=== PATIENT | male | born 1945 | race Caucasian/White ===

== ENCOUNTER → 2016-06-24 | Outpatient (CLI) | payer MEDICARE ==
[~2016-06-24] MED LIST: ACAR50TA11 PO; ASPI-621 PO; BALS750C14 PO; CANA100T PO; CARV12.52 PO; DIGO125T PO; METF500T4 PO; PANT20TA3 PO; SIMV20TA3 PO; VALS160T3 PO
[2016-06-24 15:30] LABS: HEMOGLOBIN 16.5 g/dL (13.7-18.0)
[2016-06-24 15:38] LABS: ASPARTATE AMINO TRANSFERASE 14 U/L (15-37); BLOOD UREA NITROGEN 16 mg/dL (7-18)
== END | disposition home or self-care (01) ==
LOC: STAR 14:28
PROVIDERS: ATTEND Internal Medicine Cardiovascular Disease
DX: Z01.810 Encounter for preprocedural cardiovascular examination (principal); I48.0 Paroxysmal atrial fibrillation
CPT/HCPCS: 36415; 80053; 85025; 85610; 85730; 93005

== ENCOUNTER → 2016-06-24 | Outpatient (CLI) | payer MEDICARE ==
[~2016-06-24] MED LIST changes: +OMNIPAQUE 350 MG/ML, 150 ML BOTTLE ONE
== END | disposition home or self-care (01) ==
LOC: CFH 12:39
PROVIDERS: ATTEND Internal Medicine Cardiovascular Disease
DX: I48.91 Unspecified atrial fibrillation (principal)
CPT/HCPCS: 71020; 75572; 82565; Q9967

== ENCOUNTER 2016-06-29 06:35 | Observation (INO) | payer MEDICARE ==
[2016-06-24 14:58] VITALS: BP 147/73
[~2016-06-29] VITALS: Ht 180.3 cm; Wt 104.0 kg
[~2016-06-29 06:35] MED LIST changes: -OMNIPAQUE 350 MG/ML, 150 ML BOTTLE ONE
[2016-06-29] MEDS ORDERED: SODIUM CHLORIDE 0.9% 1,000 ML IV SCH ×2 (06:38→07:00)
[2016-06-29] MEDS ORDERED: MIDAZOLAM 1 MG/ML, 5ML ONE (07:36)
[2016-06-29] MEDS ORDERED: FENTANYL PF 250 MCG/5ML ONE (07:36)
[2016-06-29] MEDS ORDERED: ISOPROTERENOL 0.2MG/ML, 5ML ONE (07:38)
[2016-06-29] MEDS ORDERED: HEPARIN 1,000 UNITS/ML, 10ML ONE (07:38)
[2016-06-29] MEDS ORDERED: LIDOCAINE 2%, 20ML ONE (07:38)
[2016-06-29] MEDS ORDERED: SUCCINYLCHOLINE 20 MG/ML, 10ML ONE (07:42)
[2016-06-29] MEDS ORDERED: DEXAMETHASONE 4 MG/ML, 1ML ONE (07:42)
[2016-06-29] MEDS ORDERED: PROPOFOL 10 MG/ML, 20ML ONE (07:42)
[2016-06-29] MEDS ORDERED: ROCURONIUM 10 MG/ML ONE (07:42)
[2016-06-29] MEDS ORDERED: PHENYLEPHRINE 10 MG/ML ONE (07:42)
[2016-06-29] MEDS ORDERED: PROTAMINE SULFATE 10 MG/ML, 5ML ONE (10:12)
[2016-06-29] MEDS ORDERED: ACETAMINOPHEN 325 MG TABLET PO PRN ×2 (10:30→11:30)
[2016-06-29] MEDS ORDERED: ZOLPIDEM 5MG TABLET PO PRN (10:30)
[2016-06-29] MEDS ORDERED: OXYcodone/APAP 5/325MG TABLET PO PRN (10:30)
[2016-06-29] MEDS ORDERED: LABETALOL 5MG/ML, 20ML IV PRN (11:30)
[2016-06-29] MEDS ORDERED: hydrALAzine 20 MG/ML, 1ML IV PRN (11:30)
[2016-06-29] MEDS ORDERED: MIDAZOLAM 1 MG/ML, 2ML IV PRN (11:30)
[2016-06-29] MEDS ORDERED: ONDANSETRON 2MG/ML, 2ML IVPush PRN (11:30)
[2016-06-29] MEDS ORDERED: HYDROmorphone 1 MG/ML, 1ML IV PRN (11:30)
[2016-06-29] MEDS ORDERED: PROMETHAZINE 25 MG/ML, 1ML IV PRN (11:30)
[2016-06-29] MEDS ORDERED: ALBUTEROL SULFATE 2.5 MG/3 ML NPPB PRN (11:30)
[2016-06-29] MEDS ORDERED: MEPERIDINE/PF 25MG/0.5ML IVPush PRN (11:30)
[2016-06-29] MEDS ORDERED: FENTANYL PF 100 MCG/2ML ONE (12:00)
[2016-06-29] MEDS: FENTANYL PF 100 MCG/2ML IV PRN ×2 (12:01→12:06)
[2016-06-29] MEDS ORDERED: OXYcodone 5 MG/5 ML ORAL.SOL UDC ONE ×2 (12:17→12:53)
[2016-06-29] MEDS: OXYcodone 5 MG/5 ML ORAL.SOL UDC PO PRN ×2 (12:20→13:00)
[2016-06-29 13:26] VITALS: BP 149/84
[2016-06-29] MEDS: ACARBOSE 50 MG TABLET PO SCH ×2 (17:03→21:00)
[2016-06-29 17:04] VITALS: BP 131/68
[2016-06-29 20:00] VITALS: BP 120/70
[2016-06-29] MEDS: metFORMIN 500 MG TABLET PO SCH (21:00)
[2016-06-29] MEDS ORDERED: SIMVASTATIN 20 MG TABLET PO SCH (21:00)
[2016-06-29] MEDS: CARVEDILOL 12.5 MG TABLET PO SCH (21:05)
[2016-06-29] MEDS: APIXABAN 5 MG TABLET PO SCH (21:05)
[2016-06-30 02:46] VITALS: BP 115/62
[2016-06-30] MEDS ORDERED: APIX5TAB PO (07:37)
[2016-06-30 07:46] VITALS: BP 142/69
[2016-06-30] MEDS: APIXABAN 5 MG TABLET PO SCH (08:08)
[2016-06-30] MEDS: CARVEDILOL 12.5 MG TABLET PO SCH (08:08)
[2016-06-30] MEDS: ACARBOSE 50 MG TABLET PO SCH (08:11)
[2016-06-30] MEDS: metFORMIN 500 MG TABLET PO SCH (08:11)
[2016-06-30] MEDS ORDERED: ASPIRIN 81 MG TABLET EC PO SCH (09:00)
[2016-06-30] MEDS ORDERED: BALSALAZIDE DISODIUM 750 MG PO SCH (09:00)
[2016-06-30] MEDS ORDERED: DIGOXIN 0.125 MG TABLET PO SCH (09:00)
[2016-06-30] MEDS ORDERED: VALSARTAN 160 MG TABLET PO SCH (09:00)
[2016-06-30] MEDS ORDERED: PANTOPRAZOLE 20MG TABLET PO SCH (09:00)
[2016-06-30] MEDS ORDERED: CANAGLIFLOZIN 100 MG PO SCH (09:00)
== END 2016-06-30 11:28 | disposition home or self-care (01) ==
LOC: CACL 06:35 → ORIP 10:12 → 5SO 13:24 → DCLOUNGE 06-30 11:17
PROVIDERS: ADMIT Internal Medicine Cardiovascular Disease; ATTEND Internal Medicine Cardiovascular Disease
DX: I48.0 Paroxysmal atrial fibrillation (principal); I10 Essential (primary) hypertension; E78.5 Hyperlipidemia, unspecified; I49.9 Cardiac arrhythmia, unspecified; I48.92 Unspecified atrial flutter; E11.9 Type 2 diabetes mellitus without complications
CPT/HCPCS: 82962; 85347; 93308; 93312; 93321; 93325; 93613; 93656; 93662; C1730; C1732; C1759; C1766; C1893; C1894; G0378; J0330; J1100; J1644; J2250; J2370; J2704; J2720; J3010; J3490

== ENCOUNTER 2019-08-23 08:58 | Observation (INO) | payer MEDICARE ==
[~2019-08-23] VITALS: Ht 170.2 cm; Wt 110.5 kg
[~2019-08-23 08:58] MED LIST changes: +ACAR50TA PO; -ACAR50TA11 PO; +APIX5TAB PO; -ASPI-621 PO; +ASPI81TA45 PO; -DIGO125T PO; +DIGO125T85 PO; +METF500T17 PO; -METF500T4 PO; +SIMV20TA19 PO; -SIMV20TA3 PO
[2019-08-23] MEDS: SODIUM CHLORIDE 0.9% 1,000 ML IV SCH ×4 (09:43→21:02)
[2019-08-23] MEDS ORDERED: ASPIRIN 325 MG TABLET EC ONE (09:54)
[2019-08-23 09:57] VITALS: BP 154/81
[2019-08-23] MEDS ORDERED: ASPIRIN 325 MG TABLET EC PO ONE (10:00)
[2019-08-23] MEDS ORDERED: INSU100I13 SQ (10:10)
[2019-08-23] MEDS ORDERED: PANT40TA5 PO (10:10)
[2019-08-23] MEDS ORDERED: TELM80TA PO (10:12)
[2019-08-23 10:29] LABS: BASOPHILS # (AUTO) 0.02 x10^3/uL (0-0.1); BASOPHILS % (AUTO) 0 % (0-1); EOSINOPHILS % (AUTO) 4 % (1-7); LYMPHOCYTES # (AUTO) 1.71 x10^3/uL (1-3.4); LYMPHOCYTES % (AUTO) 31 % (22-44); MD NO; MEAN CORPUSCULAR HGB CONC 32.7 g/dL (33.2-36.2); MEAN CORPUSCULAR VOLUME 88.5 fL (81-97); MEAN PLATELET VOLUME 9.4 fL (7.4-10.4); MONOCYTES % (AUTO) 9 % (2-9); NEUTROPHILS # (AUTO) 3.11 x10^3/uL (1.8-6.8); NEUTROPHILS % (AUTO) 56 % (42-75); PLATELET COUNT 175 x10^3/uL (130-400); RED BLOOD COUNT 4.82 x10^6/uL (4.38-5.82); RED CELL DISTRIBUTION WIDTH 14.5 % (9.4-14.8)
[2019-08-23 10:37] LABS: ANION GAP 7 mmol/L (5-15); CHLORIDE 109 mmol/L (98-107)
[2019-08-23 10:38] LABS: CREATININE 1.18 mg/dL (0.7-1.3)
[2019-08-23] MEDS ORDERED: VERAPAMIL 2.5 MG/ML, 2ML ONE (11:52)
[2019-08-23] MEDS ORDERED: MIDAZOLAM 1 MG/ML, 5ML ONE (11:52)
[2019-08-23] MEDS ORDERED: TICAGRELOR 90 MG TABLET ONE (11:52)
[2019-08-23] MEDS ORDERED: FENTANYL PF 100 MCG/2ML ONE (11:52)
[2019-08-23] MEDS ORDERED: BIVALIRUDIN 250 MG ONE ×2 (11:53→12:26)
[2019-08-23] MEDS ORDERED: LIDOCAINE-MPF 1%, 5ML ONE (11:53)
[2019-08-23] MEDS ORDERED: HEPARIN 1,000 UNITS/ML, 10ML ONE (11:53)
[2019-08-23] MEDS ORDERED: hydrALAzine 20 MG/ML, 1ML ONE (12:38)
[2019-08-23] MEDS ORDERED: CLOPIDOGREL 300 MG TABLET ONE (12:38)
[2019-08-23] MEDS ORDERED: BIVALIRUDIN 250 MG in SODIUM CHLORIDE 0.9% 50 ML IV SCH (13:16)
[2019-08-23] MEDS ORDERED: hydrALAzine 20 MG/ML, 1ML IV PRN (13:30)
[2019-08-23] MEDS ORDERED: ZOLPIDEM 5MG TABLET PO PRN (13:30)
[2019-08-23] MEDS ORDERED: ONDANSETRON 2MG/ML, 2ML IVPush PRN (13:30)
[2019-08-23] MEDS ORDERED: POTASSIUM CHLORIDE 20 MEQ TAB.ER.PRT PO ONE (13:30)
[2019-08-23 14:07] VITALS: BP 133/73
[2019-08-23 16:47] LABS: MICROSCOPIC INDICATED
[2019-08-23] MEDS: CIPROFLOXACIN 500 MG TABLET PO SCH (18:28)
[2019-08-23 19:25] VITALS: BP 149/77
[2019-08-23] MEDS ORDERED: ACETAMINOPHEN 325 MG TABLET PO PRN (20:00)
[2019-08-23] MEDS ORDERED: SIMVASTATIN 20 MG TABLET PO SCH (21:00)
[2019-08-23] MEDS: CARVEDILOL 12.5 MG TABLET PO SCH (21:01)
[2019-08-23] MEDS: metFORMIN 500 MG TABLET PO SCH (21:01)
[2019-08-23 22:28] LABS: ANION GAP 8 mmol/L (5-15); CALCIUM 8.9 mg/dL (8.5-10.1); CHLORIDE 111 mmol/L (98-107); CREATININE 1.05 mg/dL (0.7-1.3)
[2019-08-24 00:43] VITALS: BP 114/66
[2019-08-24] MEDS: SODIUM CHLORIDE 0.9% 1,000 ML IV SCH (04:26)
[2019-08-24 05:05] LABS: ANION GAP 9 mmol/L (5-15); BASOPHILS # (AUTO) 0.04 x10^3/uL (0-0.1); BASOPHILS % (AUTO) 1 % (0-1); CALCIUM 8.7 mg/dL (8.5-10.1); CHLORIDE 111 mmol/L (98-107); CREATININE 1.06 mg/dL (0.7-1.3); EOSINOPHILS # (AUTO) 0.25 x10^3/uL (0-0.4); EOSINOPHILS % (AUTO) 3 % (1-7); LYMPHOCYTES # (AUTO) 1.29 x10^3/uL (1-3.4); LYMPHOCYTES % (AUTO) 17 % (22-44); MD NO; MEAN CORPUSCULAR HEMOGLOBIN 28.6 pg (27.5-34.5); MEAN CORPUSCULAR HGB CONC 32.8 g/dL (33.2-36.2); MEAN CORPUSCULAR VOLUME 87.1 fL (81-97); MEAN PLATELET VOLUME 9.8 fL (7.4-10.4); MONOCYTES # (AUTO) 0.75 x10^3/uL (0.2-0.8); MONOCYTES % (AUTO) 10 % (2-9); NEUTROPHILS # (AUTO) 5.52 x10^3/uL (1.8-6.8); NEUTROPHILS % (AUTO) 70 % (42-75); PLATELET COUNT 175 x10^3/uL (130-400); RED BLOOD COUNT 4.82 x10^6/uL (4.38-5.82); RED CELL DISTRIBUTION WIDTH 14.6 % (9.4-14.8)
[2019-08-24] MEDS: CIPROFLOXACIN 500 MG TABLET PO SCH (05:40)
[2019-08-24 07:55] VITALS: BP 132/69
[2019-08-24] MEDS ORDERED: CLOP75TA PO (08:33)
[2019-08-24] MEDS ORDERED: BALSALAZIDE 750 MG PO SCH (09:00)
[2019-08-24] MEDS ORDERED: INSULIN GLARGINE 100 UNITS/ML, PEN SQ-INSULIN SCH (09:00)
[2019-08-24] MEDS ORDERED: ASPIRIN 81 MG TABLET EC PO SCH (09:00)
[2019-08-24] MEDS ORDERED: CLOPIDOGREL 75 MG TABLET PO SCH (09:00)
[2019-08-24] MEDS ORDERED: PANTOPRAZOLE 20MG TABLET PO SCH (09:00)
[2019-08-24] MEDS: CARVEDILOL 12.5 MG TABLET PO SCH (09:10)
[2019-08-24] MEDS: metFORMIN 500 MG TABLET PO SCH (09:10)
== END 2019-08-24 13:21 | disposition home or self-care (01) ==
LOC: CACL 08:58 → ORIP 13:16 → 5SO 13:26 → DCLOUNGE 08-24 13:05
PROVIDERS: ADMIT Internal Medicine Cardiovascular Disease; ATTEND Internal Medicine Cardiovascular Disease
DX: I48.0 Paroxysmal atrial fibrillation (principal); I25.10 Atherosclerotic heart disease of native coronary artery without angina pectoris; I10 Essential (primary) hypertension; R93.1 Abnormal findings on diagnostic imaging of heart and coronary circulation; E78.5 Hyperlipidemia, unspecified; E11.9 Type 2 diabetes mellitus without complications
CPT/HCPCS: 36415; 80048; 81001; 85025; 93005; 93458; 99156; 99157; C1725; C1769; C1874; C1887; C1894; C9600; G0378; J0360; J0583; J1644; J2250; J3010; J7030; Q9967

== ENCOUNTER 2020-06-24 07:58 | Day surgery (SDC) | payer MEDICARE ==
[~2020-06-24] VITALS: Ht 170.2 cm; Wt 102.3 kg
[~2020-06-24 07:58] MED LIST changes: +CLOP75TA PO; +INSU100I13 SQ; -PANT20TA3 PO; +PANT20TA4 PO; +PANT40TA6 PO; +TELM80TA PO
[2020-06-24 08:30] VITALS: BP 163/85
[2020-06-24] MEDS ORDERED: SOTA120T26 PO (08:38)
[2020-06-24] MEDS ORDERED: AMLO-150 PO (08:38)
[2020-06-24] MEDS ORDERED: ATOR40TA PO (08:38)
[2020-06-24 08:46] LABS: BASOPHILS % (AUTO) 2 % (0-1); EOSINOPHILS % (AUTO) 3 % (1-7); LYMPHOCYTES % (AUTO) 26 % (22-44); MEAN CORPUSCULAR HEMOGLOBIN 29.3 pg (27.5-34.5); MEAN CORPUSCULAR HGB CONC 33.5 g/dL (33.2-36.2); MEAN PLATELET VOLUME 9.1 fL (7.4-10.4); MONOCYTES % (AUTO) 9 % (2-9); NEUTROPHILS % (AUTO) 61 % (42-75); PLATELET COUNT 179 x10^3/uL (130-400); RED BLOOD COUNT 4.82 x10^6/uL (4.38-5.82); RED CELL DISTRIBUTION WIDTH 13.8 % (9.4-14.8)
[2020-06-24 08:47] LABS: MD NO
[2020-06-24 08:59] LABS: ANION GAP 6 mmol/L (5-15); CHLORIDE 109 mmol/L (98-107); CREATININE 0.98 mg/dL (0.7-1.3)
[2020-06-24 09:00] LABS: INTERNATIONAL NORMALIZED RATIO 1.08 (0.93-1.1); PROTHROMBIN TIME 11.5 Seconds (9.6-11.5)
[2020-06-24] MEDS ORDERED: MIDAZOLAM 1 MG/ML, 2ML ONE (09:36)
[2020-06-24] MEDS ORDERED: FENTANYL PF 100 MCG/2ML ONE (09:36)
[2020-06-24] MEDS ORDERED: LIDOCAINE 1%, 20ML ONE ×2 (09:36→09:39)
== END 2020-06-24 13:56 | disposition home or self-care (01) ==
LOC: CACL 07:58
PROVIDERS: ATTEND Internal Medicine Cardiovascular Disease
DX: R94.39 Abnormal result of other cardiovascular function study (principal); I25.10 Atherosclerotic heart disease of native coronary artery without angina pectoris; I25.84 Coronary atherosclerosis due to calcified coronary lesion; I48.0 Paroxysmal atrial fibrillation; I10 Essential (primary) hypertension; E11.9 Type 2 diabetes mellitus without complications; E78.5 Hyperlipidemia, unspecified; G47.30 Sleep apnea, unspecified; E66.3 Overweight; Z68.36 Body mass index [BMI] 36.0-36.9, adult; Z79.01 Long term (current) use of anticoagulants; Z79.02 Long term (current) use of antithrombotics/antiplatelets; Z79.4 Long term (current) use of insulin; Z79.899 Other long term (current) drug therapy; Z88.2 Allergy status to sulfonamides; Z95.5 Presence of coronary angioplasty implant and graft
CPT/HCPCS: 36415; 80048; 85025; 85610; 85730; 93458; 99156; C1760; C1769; C1894; J2250; J3010; Q9967